=== PATIENT | female | born 1985 ===

== ENCOUNTER 2024-07-02 10:48 | Day surgery (SDC) | payer OTHER ==
[2024-06-29 11:26] LABS: HEMOGLOBIN 13.7 g/dL (12.0-15.00); MEAN CORPUSCULAR HGB CONC 35.2 g/dl (32.0-36.0); PLATELET COUNT 251 K/uL (150-450); RED BLOOD COUNT 4.29 M/uL (4.00-6.00); RED CELL DISTRIBUTION WIDTH 12.9 % (11.5-14.5)
[2024-06-29 11:36] LABS: PH,URINE 5.5 (5.0-8.0); URINE APPEARANCE Clear; URINE BILIRRUBIN Negative (NEGATIVE); URINE BLOOD Negative; URINE COLOR Yellow; URINE GLUCOSE Negative (NEGATIVE); URINE KETONE Negative (NEGATIVE); URINE LEUKOCYTE Negative; URINE NITRATE Negative; URINE PROTEIN Negative (NEGATIVE); URINE UROBILINOGEN 0.2 E.U./dl
[2024-06-29 11:37] LABS: URINE BACTERIA 1404.7 uL (0.0-1933); URINE EPITHELIAL CELLS 10.3 uL (0.0-38.8); URINE RBC 9.6 uL (0.0-20.8); URINE WBC 11.1 uL (0.0-23.2)
[2024-06-29 11:43] LABS: URINE CAST 0.45 uL (0.0-1.40)
[2024-06-29 11:55] LABS: INR 0.96; PROTHROMBIN TIME 10.5 SECONDS (9.0-11.5)
[2024-06-29 12:43] LABS: RH POSITIVE
[2024-07-02] MEDS ORDERED: RINGERS SOLUTION,LACTATED 1,000 ML IV SCH (22:00)
== END 2024-07-03 02:15 | disposition home or self-care (01) ==
LOC: CIR.AMB 10:48
PROVIDERS: ATTEND Obstetrics & Gynecology
DX: O02.1 Missed abortion (principal); Z88.2 Allergy status to sulfonamides; Z88.8 Allergy status to other drugs, medicaments and biological substances